=== PATIENT | female | born 1980 | race Caucasian/White ===

== ENCOUNTER 2024-09-22 15:58 | Emergency (ER) | payer SELFPAY ==
[~2024-09-22] VITALS: Ht 166.4 cm; Wt 71.0 kg
[2024-09-22 16:30] LABS: MEAN PLATELET VOLUME 8.4 FL (7.4-10.4); RED CELL DISTRIBUTION WIDTH 14.5 % (11.5-14.5)
[2024-09-22 16:46] LABS: CREATININE 0.82 MG/DL (0.40-0.90); TOTAL CARBON DIOXIDE 26.7 MMOL/L (24-32); eCRCL 80 ML/MIN; eGFR 75 ML/MIN
[2024-09-22 17:58] VITALS: TEMP 97.3
--- NOTE | 2024-09-22 18:00 | Physician Documentation ---
History of Present Illness Chief Complaint: Abdominal Pain w/vomiting Stated Complaint: GALL BALDDER PAIN Time Seen by MD: 17:49 HPI 43-year-old female presents to the ED with a complaint of abdominal pain for the last week. State that the pain is worse after eating food. She states that the pain is in her right upper quadrant and radiates to her back at times. Says her kidneys are bothering her as well she states that is she has subjective fevers she denies any vomiting Day of Onset: Sep 22, 2024 Medication Reconciliation Allergies: Coded Allergies: penicillin G (Verified Allergy, Severe, SOB and Vomiting, 09/22/24) Scheduled Sulfamethoxazole/Trimethoprim (Septra Ds Tab), 1 TAB PO Q12H Review of Systems All Other Systems at this time: Reviewed and Negative ROS Scribed for Kartik Hartley Assistant Professor Of Art by Kartik Hartley - EMILIA . 09/22/24 18:00 Physical Exam Vital Signs: Temperature: 97.3, Source: Temporal, Heart Rate: 104, Respiratory Rate: 18, BP: 162/85, Pulse Oximetry: 100, Weight: 70.980 Progress Results/Orders Results/Orders Vital Signs 09/22/24 16:03 Temp 97.3 Pulse 104 Resp 18 B/P (MAP) 162/85 Pulse Ox 100 Laboratory Tests Test 09/22/24 16:21 White Blood Count 7.2 Red Blood Count 5.38 Hemoglobin 17.0 H Hematocrit 50.3 H Mean Corpuscular Volume 93.4 Mean Corpuscular Hemoglobin 31.6 H Mean Corpuscular Hemoglobin Concent 33.8 Red Cell Distribution Width 14.5 Platelet Count 315 Mean Platelet Volume 8.4 Neutrophils (%) (Auto) 69.7 Lymphocytes (%) (Auto) 22.2 Monocytes (%) (Auto) 6.8 Eosinophils (%) (Auto) 1.0 Basophils (%) (Auto) 0.3 Neutrophils # (Auto) 5.0 Lymphocytes # (Auto) 1.6 Monocytes # (Auto) 0.5 Eosinophils # (Auto) 0.1 Basophils # (Auto) 0.0 CBC Comment Sodium Level 139 Potassium Level 4.6 Chloride Level 105 Carbon Dioxide Level 26.7 Anion Gap 7 L Blood Urea Nitrogen 11 Creatinine 0.82 Estimated GFR/1.73 m2 75 BUN/Creatinine Ratio 13.4 Glucose Level 129 H Calcium Level 8.9 Total Bilirubin 0.4 Aspartate Amino Transf (AST/SGOT) 15 Alanine Aminotransferase (ALT/SGPT) 22 Alkaline Phosphatase 130 H Total Protein 8.0 Albumin 4.2 Globulin 3.8 Albumin/Globulin Ratio 1.1 Lipase 66 Chemistry Comments Medical Decision Making Findings Based on patient's initial exam I was more concerned about cholecystitis or gallstones however ultrasound came back negative. Based on her history she had also been complaining on back pain I ordered a urinalysis and she came back for positive nitrites. She went on to say that a urinary tract infection is is lik frank because she has also had subjective fevers and cold sweats.. And also complains of flank pain. Talked to her the about returning to the ED if she has any worsening symptoms or persistent symptoms. Differential Dx:Considerations: Include: AAA, -Complete, - Incomplete, -Inevitable, -Missed, -Threatened, Abruptio placentae, Angina/NH, Aortic dissection, Appendicitis, Bowel obstruction, Cholangitis, Cholelithasis, Constipation, Diverticular disease, Esophageal rupture, Esophagitis, Gastritis/PUD, Gastroenteritis, GI hemorrhage, Hernia, Hepatitis, Inflammatory BD, Ischemic bowel, Ovarian cyst/torsion, Pancreatitis, PID, Porphyria, Trauma, intraabdominal, Urinary obstruction, Urinary tract infection, Urolithiasis, Other Departure Disposition: 01 HOME / SELF CARE / HOMELESS Impression: Primary Impression: Acute urinary tract infection Additional Impression: Acute pyelonephritis Discharge Instructions: Pyelonephritis, Adult, Urinary Tract Infection, Adult Referrals: NO PRIMARY CARE PROVIDER (PCP) Prescriptions Sulfamethoxazole/Trimethoprim (Septra Ds Tab) 800 Mg/160 Mg Tablet 1 TAB PO Q12H for 10 Days, #20 TAB Prov: KARTIK HARTLEY NP 09/22/24 Education Educated: Patient Educated regarding: diagnosis Signature Scribe Signature: d Attestation: Scribed for Kartik Hartley Np by Kartik Pelayo NP . 09/22/24 18:00 KARTIK HARTLEY NP Sep 22, 2024 18:00
[2024-09-22 18:28] LABS: URINE HCG NEGATIVE (NEG)
[2024-09-22 18:31] LABS: LEUKOCYTE ESTERASE ,URINE LARGE (Neg); NITRITES, URINE POSITIVE (Neg); OCCULT BLOOD,URINE TRACE-INTACT (Neg)
[2024-09-22 18:36] LABS: UA COLLECTION TYPE CLN CATCH MIDSTREAM
[2024-09-22 18:52] LABS: MUCUS STRANDS MODERATE /LPF (Neg); RENAL CELLS, URINE MODERATE /HPF; SQUAMOUS EPITHELIAL CELL,UR MANY /LPF (FEW)
[2024-09-22] MEDS ORDERED: SULF1TAB45 PO (19:04)
[2024-09-22 19:10] VITALS: BP 114/87; PULSE 65; RESP 16; O2SAT 100
--- NOTE | 2024-09-22 19:12 | RADIOLOGY REPORT ---
Procedure: US [facility]TRASOUND OF [facility] Study Date and Requested Time: 09/22/2024 06:36 PM History: RUQ abd paiin Comparison: None Technique: Multiple high resolution choi-scale images obtained of the right upper quadrant of the abd omen with color Doppler for evaluation of blood flow and vascularity as indicated. Findings: Liver enlarged measuring 17.2 cm in length, with increased echogenicity and normal contours. No evide nce of focal hepatic lesions, intrahepatic or extrahepatic ductal dilatation. Common bile duct measur es 0.6 cm in diameter. Gallbladder unremarkable with no evidence of abnormal wall thickening, gallstones, biliary sludge, or pericholecystic fluid. Positive sonographic Apple's sign. Pancreas only partially visualized due to overlying bowel gas but is otherwise unremarkable. Right kidney measures 10.7 cm in length, with normal contours, echotexture, and cortical thickness. N o evidence of hydronephrosis, calculi, cystic or solid renal lesions. Partially visualized inferior vena cava unremarkable. Impression: Mild hepatomegaly with hepatic steatosis. Nonspecific positive sonographic Apple's sign with normal appearance of the gallbladder and common b ile duct.
[2024-09-22] MEDS: sulfamethoxazole/trimethoprim DS (800/160mg) tablet PO ONE (19:13)
== END 2024-09-22 19:28 | disposition home or self-care (01) ==
LOC: ER 16:00
DX: N39.0 Urinary tract infection, site not specified (principal); N10 Acute pyelonephritis; Z88.0 Allergy status to penicillin; Z79.899 Other long term (current) drug therapy
CPT/HCPCS: 36415; 76700; 80053; 81001; 81025; 83690; 85025; 99284

== ENCOUNTER 2024-12-14 17:34 | Emergency (ER) | payer MEDICAID ==
[~2024-12-14] VITALS: Ht 166.4 cm; Wt 73.3 kg
[~2024-12-14 17:34] MED LIST: SULF1TAB45 PO
[2024-12-14 17:53] VITALS: BP 124/75; PULSE 79; O2SAT 98
--- NOTE | 2024-12-14 17:59 | ELECTROCARDIOGRAPH REPORT ---
[facility] Test Date: 2024-12-14 Test Time: 17:39:55 Pat Name: ALEX NUR Department: EMERGENCY ROOM Room: Gender: F Software Configuration Analyst: ROLANDO : 1980 Requested By: RACHAEL PITT Order Number: [id number] Reading MD: Dr. Raffaele Thorpe Measurements Intervals [place] Rate: 80 P: 65 MD: 149 QRS: 106 QRSD: 81 T: 56 QT: 362 QTc: 418 Interpretive Statements Sinus rhythm Right axis deviation Low voltage, precordial leads Electronically Signed On 12-15-2024 21:40:[address] Raffaele Thorpe Please click the below link to view image of tracing.
--- NOTE | 2024-12-14 18:16 | RADIOLOGY REPORT ---
DI CHEST,TWO VIEWS CLINICAL HISTORY: RIGHT SIDED CP COMPARISON: None TECHNIQUE: Frontal and lateral view of the chest was obtained FINDINGS: Lines and Tubes: None Lungs: No focal consolidation. 1.1 cm nodular density overlying the left medial clavicle Pleura: No effusion. No pneumothorax. Cardiomediastinal contours: Unremarkable Bones: No acute osseous abnormality. IMPRESSION: No acute cardiopulmonary disease. 1.1 cm nodular density overlying the left medial clavicle which may represent sclerotic bony lesion/ medial upper lung zone pulmonary nodule. CT should be considered for further evaluation if clinically indicated.
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
[2024-12-14] MEDS: ketorolac trometh 30MG/ML vial 30 MG/ML VIAL IM ONE (18:49)
[2024-12-14 18:50] VITALS: RESP 16
[2024-12-14] MEDS: ketorolac trometh 15mg/ml vial 15 MG/ML ML IM ONE (18:50)
[2024-12-14] MEDS ORDERED: IBUP-862 PO (18:50)
[2024-12-14] MEDS ORDERED: METH-798 PO (18:50)
[2024-12-14] MEDS ORDERED: HYDR-3965 PO (18:50)
[2024-12-14 19:14] VITALS: TEMP 97.8
[2024-12-14 19:20] LABS: LEUKOCYTE ESTERASE ,URINE NEGATIVE (Neg); NITRITES, URINE POSITIVE (Neg); OCCULT BLOOD,URINE NEGATIVE (Neg)
[2024-12-14 19:37] LABS: UA COLLECTION TYPE CLN CATCH MIDSTREAM
[2024-12-14 19:50] LABS: SQUAMOUS EPITHELIAL CELL,UR MODERATE /LPF (FEW)
== END 2024-12-14 19:19 | disposition home or self-care (01) ==
LOC: ER 17:34
DX: R07.89 Other chest pain (principal); F17.200 Nicotine dependence, unspecified, uncomplicated; Z88.0 Allergy status to penicillin; Z79.899 Other long term (current) drug therapy; V89.2XXA Person injured in unspecified motor-vehicle accident, traffic, initial encounter; Y93.89 Activity, other specified; Y92.410 Unspecified street and highway as the place of occurrence of the external cause; Y99.8 Other external cause status
CPT/HCPCS: 71046; 81001; 87088; 87186; 93005; 96372; 99285; J1885; 87077

== ENCOUNTER 2025-01-09 23:29 | Emergency (ER) | payer MEDICAID ==
[~2025-01-09] VITALS: Ht 167.6 cm; Wt 83.2 kg
[~2025-01-09 23:29] MED LIST changes: +HYDR-3965 PO; +IBUP-862 PO; +METH-798 PO
[2025-01-09 23:41] VITALS: BP 144/87; PULSE 80; TEMP 97; O2SAT 100
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
[2025-01-10 01:06] VITALS: RESP 16
[2025-01-10] MEDS: ketorolac trometh 15mg/ml vial 15 MG/ML ML IM ONE (01:06)
== END 2025-01-10 01:16 | disposition home or self-care (01) ==
LOC: ER 23:30
DX: S50.11XA Contusion of right forearm, initial encounter (principal); Z88.0 Allergy status to penicillin; Z79.899 Other long term (current) drug therapy; W29.3XXA Contact with powered garden and outdoor hand tools and machinery, initial encounter; Y93.89 Activity, other specified; Y92.89 Other specified places as the place of occurrence of the external cause; Y99.8 Other external cause status
CPT/HCPCS: 73090; 96372; 99283; J1885